=== PATIENT | male | born 1970 | race African-American/Black ===

== ENCOUNTER 2016-06-09 12:14 | Emergency (ER) | payer BC ==
[~2016-06-09] VITALS: Ht 193 cm; Wt 124.2 kg
[2016-06-09 13:14] LABS: HEMATOCRIT 49.5 % (38.0-50.0); MCH 25.5 PG (29.0-34.0); MCHC 31.7 G/DL (30.0-36.0); MCV 80.5 FL (86-99); MEAN PLAT.VOLUME 9.7 uM^3 (9.0-12.4); PLATELET COUNT 316 K/uL (156-360); RBC DIS.WIDTH-CV 13.1 % (11.8-14.6); RBC DIS.WIDTH-SD 37.6 % (39-53); RED BLOOD COUNT 6.15 M/uL (4.00-5.50); WHITE BLOOD COUNT 6.9 K/uL (4.1-10.2)
[2016-06-09 13:26] LABS: CHLORIDE 102 mEq/L (99-109); POTASSIUM 4.3 mEq/L (3.7-5.4); SODIUM 135 mEq/L (136-147)
[2016-06-09 13:28] LABS: GLUCOSE 231 mg/dL (70-99)
[2016-06-09 13:28] LABS: ADD MIUA? YES; BILIRUBIN NEGATIVE; BLOOD NEGATIVE; COLOR YELLOW ((YELLOW)); GLUCOSE (STRIP) >=500; KETONES 80; LEUKOCYTES NEGATIVE; NITRITE NEGATIVE; PROTEIN (STRIP) 100; SPECIFIC GRAVITY 1.028 (1.000-1.030); UROBILINOGEN 0.2 MG/DL (0.2-1.0)
[2016-06-09 13:29] LABS: ANION GAP 13 MEQ/L (2-14)
[2016-06-09 13:30] LABS: TOTAL BILIRUBIN 1.4 mg/dL (0.0-1.0)
[2016-06-09 13:31] LABS: ALKALINE PHOSPHATASE 62 IU/L (3-129)
[2016-06-09 13:33] LABS: GFR ESTIMATE (CALCULATED) > 59 mL/min/; UREA NITROGEN (BUN) 13 mg/dL (9-23)
[2016-06-09 13:34] LABS: BACTERIA RARE /HPF; EPITHELIAL CELLS RARE /HPF; GRANULAR CASTS 0-5 /LPF; HYALINE CASTS 0-5 /LPF; MUCUS 1+ /LPF; RED BLOOD CELLS 0-5 /HPF (0-5); UCUL ADDED? NO; WHITE BLOOD CELLS 0-5 /HPF (0-5)
[2016-06-09 13:35] LABS: LIPASE 68 U/L (1.0-51.0)
[2016-06-09] MEDS ORDERED: BENTYL20 MG PO (16:02)
[2016-06-09] MEDS ORDERED: ZOFRAN ODT4 MG PO (16:02)
[2016-06-09 16:26] VITALS: BP 115/65
== END 2016-06-09 16:27 | disposition home or self-care (01) ==
LOC: EME 12:14
DX: K85.90 Acute pancreatitis without necrosis or infection, unspecified (principal); R11.2 Nausea with vomiting, unspecified; K76.0 Fatty (change of) liver, not elsewhere classified; E11.9 Type 2 diabetes mellitus without complications
CPT/HCPCS: 74177; 80053; 81003; 83690; 85027; 87493; 87506; 99281; 99285; J1885; J2405; J7030